=== PATIENT | female | born 2000 | race Caucasian/White ===

== ENCOUNTER 2024-01-16 20:42 | Emergency (ER) | payer BC ==
[2024-01-16 20:46] VITALS: TEMP 98.7
[2024-01-16] MEDS ORDERED: SUBLIMAZE 100 MCG/2 ML ONE (21:15)
[2024-01-16] MEDS ORDERED: Zofran 4 MG/2 ML VIAL ONE (21:15)
[2024-01-16] MEDS ORDERED: Sodium Chloride 0.9% 1000 ML 1,000 ML ONE (21:16)
[2024-01-16 21:18] LABS: Absolute Neutrophil Ct (ANC) 4.61 x10^3/uL (1.4-6.9); BASOPHIL % 0.4 % (0.0-0.4); Basophil (Absolute #) 0.04 x10^3/uL (0-0.4); Eosinophil % 2.7 % (0.00-5.0); Eosinophil (Absolute #) 0.24 x10^3/uL (0-0.5); Hematocrit 37.5 % (35-47); Hemoglobin 11.3 g/dL (12.0-16.0); IMMATURE GRAN # 0.02 x10^3u/L (0.00-0.03); IMMATURE GRAN % 0.2 % (0.00-0.4); Lymphocyte (Absolute #) 3.59 x10^3/uL (1.0-4.6); Lymphocytes % 39.8 % (24.0-44.0); Mean Cell Volume 74.9 fL (78-100); Mean Corpuscular Hemoglobin 22.6 pg (26-32); Mean Corpuscular Hgb Concent. 30.1 g/dL (32-36); Mean Platelet Volume 9.8 fL (7.5-11.0); Monocyte (Absolute #) 0.51 x10^3/uL (0.0-1.3); Monocytes % 5.7 % (0.0-12.0); Neutrophil % 51.2 % (36.0-66.0); Platelet Count 396 x10^3/uL (150-450); Red Blood Count 5.01 x10^6/uL (4.1-5.4)
[2024-01-16] MEDS: Sodium Chloride 0.9% 1000 ML 1,000 ML IV STA (21:22)
[2024-01-16] MEDS: SUBLIMAZE 100 MCG/2 ML IV ONE (21:23)
[2024-01-16] MEDS: Zofran 4 MG/2 ML VIAL IV ONE (21:23)
[2024-01-16 21:31] LABS: HCG SERUM TEST NEGATIVE (NEGATIVE)
[2024-01-16 21:34] LABS: ALBUMIN 3.9 g/dL (3.5-5.0); ANION GAP 13.8 MEQ/L (5-15); BILIRUBIN,TOTAL 0.6 mg/dL (0.2-1.3); Calcium 8.9 mg/dL (8.4-10.2); Creatinine 1 0.59 mg/dL (0.52-1.04); EST GLOMERULAR FILTRATION RATE 130.6 ML/MIN; Potassium 3.9 mmol/L (3.5-5.1); Total Protein 7.2 g/dL (6.3-8.2)
[2024-01-16 21:51] LABS: ADD URINE CULTURE? YES (NO); Appearance Cloudy (Clear); Bacteria Rare /HPF (None Seen); Bilirubin Negative (Negative); Blood Large (Negative); Epithelial Cells Moderate /HPF (None Seen); Glucose, Urine Negative (Negative); Hyaline Casts NONE SEEN /LPF (0-2); Ketones Negative (Negative); Leukocyte Esterase Moderate (Negative); Nitrite Negative (Negative); Protein,Urine Dip Trace (Negative); RBC 21-50 /HPF (0-5); Specific Gravity 1.025 (1.005-1.030); WBC 21-50 /HPF (0-5)
[2024-01-16 22:18] LABS: INFLUENZA A NEGATIVE (NEGATIVE); INFLUENZA B NEGATIVE (NEGATIVE); RESPIRATORY SYNCTIAL VIRUS NEGATIVE (NEGATIVE); SARS-CoV-2 Xpert Express NEGATIVE (NEGATIVE)
--- NOTE | 2024-01-16 22:29 | XRAY ---
CLINICAL HISTORY: mid abd pain/vomiting COMPARISON: None TECHNIQUE: A CT scan of the abdomen and pelvis was performed without IV contrast. Coronal and sagittal reconstructive images were also obtained. One of the following dose reduction techniques were utilized for this exam: Automated exposure control, adjustment of the mA and/or kV according to patient size, and use of iterative reconstruction. FINDINGS: Sections of the lower thorax show no significant abnormality. Abdomen: Area of mesenteric fatty proliferation in the mid-abdomen surrounding mesenteric vessels and mesenteric nodes, representing early mesenteric panniculitis. The liver is of average size, however, shows fatty infiltration. The intrahepatic biliary radicals and the bile ducts are normal. The gallbladder is distended. There is no evidence of wall thickening/ pericholecystic collection. The spleen, pancreas, and adrenal glands are unremarkable. The kidneys are normal in size and shape. No calculi or hydronephrosis. The appendix appears unremarkable. The ascending colon, the transverse colon, the descending colon, visualized small bowel loops are unremarkable. Pelvis: The urinary bladder is unremarkable. The rectosigmoid colon is unremarkable. The uterus appears unremarkable. Both ovaries appear bulky with the right ovary measuring 40 x 28 mm and the left ovary measuring 28 x 26 mm. No evidence of pelvic lymphadenopathy. No definite bony abnormalities could be depicted. Straightening of the lumbar spine is identified as likely secondary to muscular spasm. Thoracic scoliosis is identified with convexity towards the right side. IMPRESSION: 1. Area of mesenteric fatty proliferation in the mid-abdomen surrounding mesenteric vessels and mesenteric nodes, representing early mesenteric panniculitis. Clinical correlation is suggested. 2. Bulky both ovaries as detailed above. Recommended ultrasound follow-up.Hepatic steatosis. 3. Thoracic dextroscoliosis. [facility] ER was called at [phone] at 9:20 PM [employer], 01/16/2024 and findings were verbally communicated to Berhane Meyer. Electronically Signed by: Piedad Portillo MD. (01/16/2024 22:25:53 EDT)
[2024-01-16] MEDS ORDERED: ROCEPHIN 2 GM/100 ML NACL 2 GM/100 ML IVPB IV ONE (22:38)
[2024-01-16] MEDS: ROCEPHIN 2 GM/100 ML NACL 2 GM/100 ML IVPB IV ONE (22:42)
[2024-01-16 23:16] VITALS: BP 96/45; PULSE 83; RESP 17; O2SAT 99
--- NOTE | 2024-01-16 23:34 | ERPHSYRPT ---
- History of Present Illness Time Seen by Provider: 01/16/24 20:54 Historian: patient Exam Limitations: no limitations Patient Subjective Stated Complaint: abd pain and anxiety Triage Nursing Assessment: pt brought in by wheelchair from family vehicle per this nurse. Pt is very anxious upon arrival, c/o abd pain. Pt has pain to the mid lower abd region which began around 8pm tonight and describes it as stabbing. Pt has nausea but denies any vomiting or diarrhea. Pt c/o flank pain as well. Abd lg, obese with active bs x4 quad, tender to lower middle abd region. Physician History: 23 years old female with history of PCOS, hypothyroidism presented in the ER with complains of periumbilical pain started almost an hour prior to arrival moderate to severe sharp, nonradiating with associated nausea and dry heaving. Pain is aggravated with palpation and movements and no significant relieving factors. Patient reports she has been sick almost 5 days ago with nausea vomiting diarrhea which improved for few days. No fever or chills reported. Has any diarrhea or constipation now. Allergies/Adverse Reactions: Sulfa (Sulfonamide Antibiotics) Adverse Reaction (Intermediate, Verified 01/16/24 21:01) Hives Home Medications: Levothyroxine Sodium 88 Mcg [Synthroid 88 Mcg] 1 tab PO DAILY 01/16/24 [History] Spironolactone 25 mg [Aldactone 25 MG] 1 tab PO DAILY 01/16/24 [History] Hx Tetanus, Diphtheria Vaccination/Date Given: No Hx Influenza Vaccination/Date Given: No Hx Pneumococcal Vaccination/Date Given: No Immunizations Up to Date: No Travel Risk - International Travel Have you traveled outside of the country in past 3 weeks: No - Emerging Infectious Disease Are you exhibiting symptoms associated with any current EIDs: Yes Symptoms: Abdominal Pain, Other (Please Comment) Comment: anxious - Review of Systems Constitutional: Fatigue Eyes: No Symptoms Ears, Nose, & Throat: No Symptoms Respiratory: No Symptoms Cardiac: No Symptoms Abdominal/Gastrointestinal: Abdominal Pain, Nausea Genitourinary Symptoms: No Symptoms Musculoskeletal: No Symptoms Skin: No Symptoms Neurological: No Symptoms Endocrine: No Symptoms Hematologic/Lymphatic: No Symptoms - Past Medical History Pertinent Past Medical History: Yes Neurological History: No Pertinent History ENT History: No Pertinent History Cardiac History: No Pertinent History Respiratory History: No Pertinent History Endocrine Medical History: Hypothyroidism Musculoskeletal History: Other GI Medical History: No Pertinent History History: Other Psycho-Social History: Anxiety Female Reproductive Disorders: Other Other Medical History: age 7, immature bladder which has now resolved. scoliosis. insulin resistance - Past Surgical History Past Surgical History: No - Female History Hx Last Menstrual Period: 01/14/24 Hx Now: (unkn) - Social History Smoking Status: Never smoker Exposure to second hand smoke: No Drug Use: none - Nursing Vital Signs Nursing Vital Signs: Initial Vital Signs Temperature 98.7 F 01/16/24 20:44 Pulse Rate 84 01/16/24 20:44 Respiratory Rate 22 01/16/24 20:44 Blood Pressure 104/88 01/16/24 20:44 O2 Sat by Pulse Oximetry 99 01/16/24 20:44 Pain Scale Pain Intensity 1 - Physical Exam General Appearance: no apparent distress, alert Eye Exam: PERRL/EOMI Ears, Nose, Throat Exam: normal ENT inspection Neck Exam: normal inspection, supple, full range of motion Respiratory Exam: normal breath sounds, lungs clear Cardiovascular Exam: regular rate/rhythm, normal heart sounds Gastrointestinal/Abdomen Exam: soft, normal bowel sounds, tenderness (Umbilical area), guarding Back Exam: normal inspection, normal range of motion Extremity Exam: normal inspection, normal range of motion Neurologic Exam: alert, oriented x 3, cooperative Skin Exam: normal color SpO2 Interpretation: normal SpO2: 99 O2 Delivery: Room Air Ordered Tests: Active Orders 24 hr Category Date Time Status IV Insertion STAT Care 01/16/24 21:09 Active NPO (ED) STAT Care 01/16/24 21:09 Active ABDOMEN AND PELVIS W/0 CONTRAS [CT] Stat Exams 01/16/24 21:10 Completed CBC W DIFF Stat Lab 01/16/24 21:10 Completed CMP Stat Lab 01/16/24 21:10 Completed CULTURE,URINE Stat Lab 01/16/24 21:36 Received HCG QUALITATIVE, SERUM Stat Lab 01/16/24 21:10 Completed LIPASE Stat Lab 01/16/24 21:10 Completed TROPONIN Q4H Lab 01/16/24 21:10 Completed TROPONIN Q4H Lab 01/17/24 01:15 Ordered TROPONIN Q4H Lab 01/17/24 05:15 Ordered UA W/RFX UR CULTURE Stat Lab 01/16/24 21:36 Completed Medication Summary Discontinued Medications Generic Name Dose Route Start Last Admin Trade Name Ferdinand PRN Reason Stop Dose Admin Fentanyl Citrate 50 mcg 01/16/24 21:09 01/16/24 21:23 Fentanyl Citrate 100 Mcg/2 Ml* Vial IV 01/16/24 21:10 50 mcg STAT ONE Administration Fentanyl Citrate Confirm 01/16/24 21:15 Fentanyl Citrate 100 Mcg/2 Ml* Vial Administered 01/16/24 21:16 Dose 100 mcg .ROUTE .STK-MED ONE Sodium Chloride 1,000 mls @ 999 mls/hr 01/16/24 21:09 01/16/24 22:23 Sodium Chloride 0.9% 1000 Ml IV 01/16/24 22:09 Infused .Q1H1M STA Infusion Sodium Chloride Confirm 01/16/24 21:16 Sodium Chloride 0.9% 1000 Ml Administered 01/16/24 21:17 Dose 1,000 mls @ ud .ROUTE .STK-MED ONE Ceftriaxone Sodium 2 gm in 100 mls @ 200 mls/hr 01/16/24 22:35 01/16/24 22:42 Rocephin 2 Gm/100 Ml Nacl IV 01/16/24 23:04 200 ml/hr STAT ONE 200 mls/hr Administration Ceftriaxone Sodium Confirm 01/16/24 22:38 Rocephin 2 Gm/100 Ml Nacl Administered 01/16/24 22:39 Dose 2 gm in 100 mls @ ud IV .STK-MED ONE Ondansetron HCl 4 mg 01/16/24 21:09 01/16/24 21:23 Ondansetron Hcl 4 Mg/2 Ml Vial IV 01/16/24 21:10 4 mg STAT ONE Administration Ondansetron HCl Confirm 01/16/24 21:15 Ondansetron Hcl 4 Mg/2 Ml Vial Administered 01/16/24 21:16 Dose 4 mg .ROUTE .STK-MED ONE Lab/Rad Data: Laboratory Result Diagrams 01/16/24 21:10 01/16/24 21:10 Laboratory Results 01/16/24 01/16/24 01/16/24 Range/Units 21:40 21:36 21:10 WBC (4.0-10.5) x10^3/uL RBC (4.1-5.4) x10^6/uL Hgb (12.0-16.0) g/dL Hct (35-47) % MCV (78-100) fL MCH (26-32) pg MCHC (32-36) g/dL RDW (11.5-14.0) % Plt Count (150-450) x10^3/uL MPV (7.5-11.0) fL Gran % (36.0-66.0) % Immature Gran % (Auto) (0.00-0.4) % Nucleat RBC Rel Count (0.00-0.1) % Eos # (Auto) (0-0.5) x10^3/uL Immature Gran # (Auto) (0.00-0.03) x10^3u/L Absolute Lymphs (auto) (1.0-4.6) x10^3/uL Absolute Monos (auto) (0.0-1.3) x10^3/uL Absolute Nucleated RBC (0.00-0.01) x10^3u/L Lymphocytes % (24.0-44.0) % Monocytes % (0.0-12.0) % Eosinophils % (0.00-5.0) % Basophils % (0.0-0.4) % Absolute Granulocytes (1.4-6.9) x10^3/uL Basophils # (0-0.4) x10^3/uL Sodium (135-145) mmol/L Potassium (3.5-5.1) mmol/L Chloride (98-107) mmol/L Carbon Dioxide (22-30) mmol/L Anion Gap (5-15) MEQ/L BUN (7-17) mg/dL Creatinine (0.52-1.04) mg/dL Estimated GFR ML/MIN Glucose (74-106) mg/dL Calcium (8.4-10.2) mg/dL Total Bilirubin (0.2-1.3) mg/dL AST (14-36) U/L ALT (0-35) U/L Alkaline Phosphatase (38-126) U/L Troponin I (0.000-0.033) ng/mL Serum Total Protein (6.3-8.2) g/dL Albumin (3.5-5.0) g/dL Lipase (23-300) U/L Serum HCG, Qual NEGATIVE (NEGATIVE) Urine Color Dark Yellow A (Yellow) Urine Appearance Cloudy A (Clear) Urine pH 6.0 (4.6-8.0) Ur Specific [place] 1.025 (1.005-1.030) Urine Protein Trace A (Negative) Urine Glucose (UA) Negative (Negative) mg/dL Urine Ketones Negative (Negative) Urine Blood Large A (Negative) Urine Nitrite Negative (Negative) Urine Bilirubin Negative (Negative) Urine Urobilinogen 1.0 A (0.2) mg/dL Ur Leukocyte Esterase Moderate A (Negative) U Hyaline Cast (Auto) NONE SEEN (0-2) /LPF Urine Microscopic RBC 21-50 A (0-5) /HPF Urine Microscopic WBC 21-50 A (0-5) /HPF Ur Epithelial Cells Moderate A (None Seen) /HPF Urine Bacteria Rare A (None Seen) /HPF Urine Culture Reflexed YES (NO) Influenza Type A Ag NEGATIVE (NEGATIVE) Influenza Type B Ag NEGATIVE (NEGATIVE) RSV (PCR) NEGATIVE (NEGATIVE) SARS-CoV-2 (PCR) NEGATIVE (NEGATIVE) 01/16/24 01/16/24 01/16/24 Range/Units 21:10 21:10 21:10 WBC 9.0 (4.0-10.5) x10^3/uL RBC 5.01 (4.1-5.4) x10^6/uL Hgb 11.3 L (12.0-16.0) g/dL Hct 37.5 (35-47) % MCV 74.9 L (78-100) fL MCH 22.6 L (26-32) pg MCHC 30.1 L (32-36) g/dL RDW 16.0 H (11.5-14.0) % Plt Count 396 (150-450) x10^3/uL MPV 9.8 (7.5-11.0) fL Gran % 51.2 (36.0-66.0) % Immature Gran % (Auto) 0.2 (0.00-0.4) % Nucleat RBC Rel Count 0.0 (0.00-0.1) % Eos # (Auto) 0.24 (0-0.5) x10^3/uL Immature Gran # (Auto) 0.02 (0.00-0.03) x10^3u/L Absolute Lymphs (auto) 3.59 (1.0-4.6) x10^3/uL Absolute Monos (auto) 0.51 (0.0-1.3) x10^3/uL Absolute Nucleated RBC 0.00 (0.00-0.01) x10^3u/L Lymphocytes % 39.8 (24.0-44.0) % Monocytes % 5.7 (0.0-12.0) % Eosinophils % 2.7 (0.00-5.0) % Basophils % 0.4 (0.0-0.4) % Absolute Granulocytes 4.61 (1.4-6.9) x10^3/uL Basophils # 0.04 (0-0.4) x10^3/uL Sodium 140 (135-145) mmol/L Potassium 3.9 (3.5-5.1) mmol/L Chloride 108 H (98-107) mmol/L Carbon Dioxide 22 (22-30) mmol/L Anion Gap 13.8 (5-15) MEQ/L BUN 9 (7-17) mg/dL Creatinine 0.59 (0.52-1.04) mg/dL Estimated GFR 130.6 ML/MIN Glucose 98 (74-106) mg/dL Calcium 8.9 (8.4-10.2) mg/dL Total Bilirubin 0.60 (0.2-1.3) mg/dL AST 54 H (14-36) U/L ALT 66 H (0-35) U/L Alkaline Phosphatase 45 (38-126) U/L Troponin I < 0.012 (0.000-0.033) ng/mL Serum Total Protein 7.2 (6.3-8.2) g/dL Albumin 3.9 (3.5-5.0) g/dL Lipase 147 (23-300) U/L Serum HCG, Qual (NEGATIVE) Urine Color (Yellow) Urine Appearance (Clear) Urine pH (4.6-8.0) Ur Specific [place] (1.005-1.030) Urine Protein (Negative) Urine Glucose (UA) (Negative) mg/dL Urine Ketones (Negative) Urine Blood (Negative) Urine Nitrite (Negative) Urine Bilirubin (Negative) Urine Urobilinogen (0.2) mg/dL Ur Leukocyte Esterase (Negative) U Hyaline Cast (Auto) (0-2) /LPF Urine Microscopic RBC (0-5) /HPF Urine Microscopic WBC (0-5) /HPF Ur Epithelial Cells (None Seen) /HPF Urine Bacteria (None Seen) /HPF Urine Culture Reflexed (NO) Influenza Type A Ag (NEGATIVE) Influenza Type B Ag (NEGATIVE) RSV (PCR) (NEGATIVE) SARS-CoV-2 (PCR) (NEGATIVE) - Progress Progress: improved, re-examined Progress Note: 01/16/24 23:32 23 years old is evaluated for periumbilical pain with nausea. She is given symptomatic treatment for pain along with fluids, on reevaluation feeling much better. No peritoneal signs on repeated evaluation. Normal white count, fairly unremarkable chemistries except for mildly elevated transaminases. Has UTI and given a dose of Rocephin. CT abdomen pelvis showed mesenteric panniculitis, hepatic steatosis but no other acute findings. Patient has history of PCOS. Patient has no fever. Will continue with NSAIDs and also antibiotics for UTI which will help with any infectious process which I doubt is there with many colitis which is more of a inflammatory/reactive process. Discussed signs symptoms of worsening needing return to ER which patient seems understanding. Stable for discharge. Counseled pt/family regarding: lab results, diagnosis, need for follow-up, rad results Medical Desision Making - Independent Historian Additional History obtained from: Mother - Diagnostic Testing Diagnostic test were ordered, analyzed, and reviewed by me: Yes Radiological Interpretation: Reviewed by me, Teleradiologist Report - Risk of complications The pt has a mod risk of morbidity or mortality based on: Need for prescription drug management - Departure Departure Disposition: Home Clinical Impression: Acute UTI (urinary tract infection), Mesenteric panniculitis, PCOS (polycystic ovarian syndrome) Condition: Stable Critical Care Time: No Referrals: WILFRIDO IBARRA NP [Primary Care Provider] - Follow up with PCP 1 day Instructions: Severe Abdominal Pain, Adult (DC) Additional Instructions: Take Tylenol/ibuprofen as needed. Follow-up with primary care for reevaluation. Return to ER for intractable abdominal pain/fever chills/intractable nausea vomiting etc. Prescriptions: Ibuprofen 600 mg PO Q6HPRN PRN 10 Days #20 tablet PRN Reason: Pain Ciprofloxacin [Cipro 500 MG] 500 mg PO BID #14 tablet Ondansetron ODT 4 MG [Zofran Odt 4 mg] 1 ea PO QIDPRN PRN #7 tablet PRN Reason: n/v
== END 2024-01-16 23:48 | disposition home or self-care (01) ==
LOC: ED 20:42
DX: N39.0 Urinary tract infection, site not specified (principal); K65.4 Sclerosing mesenteritis; E28.2 Polycystic ovarian syndrome; R10.33 Periumbilical pain; Z79.899 Other long term (current) drug therapy
CPT/HCPCS: 0241U; 36000; 36415; 74176; 80053; 81001; 83690; 84484; 84703; 85025; 87086; 96365; 96374; 96375; 99284; J0696; J2405; J3010

== ENCOUNTER 2024-04-17 07:54 | Day surgery (SDC) | payer BC ==
[~2024-04-17 07:54] MED LIST: Sensorcaine 0.25% 10 ML ONE
[2024-04-17 08:09] LABS: HCG URINE TEST NEGATIVE (NEGATIVE)
--- NOTE | 2024-04-17 08:15 | HP ---
HISTORY OF PRESENT ILLNESS: The patient is a 24-year-old with right upper quadrant pain, nausea at times. No change in bowel movements. Ultrasound negative according to the patient. She did have a HIDA scan, was 4% consistent with symptomatic biliary dyskinesia, acute exacerbation of chronic cholecystitis. PAST MEDICAL HISTORY: Polycystic ovarian syndrome, hypothyroidism. HOME MEDICATIONS: Multivitamins, probiotic, levothyroxine, vitamin D3, vitamin D2, spironolactone, control pills. ALLERGIES: Sulfa. PAST SURGICAL HISTORY: She denied prior surgery. SOCIAL HISTORY: No smoking or alcohol abuse. REVIEW OF SYSTEMS: Twelve systems reviewed. Pertinent for obesity, hypothyroidism, PCOS/polycystic ovarian syndrome. No chest pain or palpitations. Other systems negative or noncontributory as above and per preadmission questionnaire. PHYSICAL EXAMINATION: VITAL SIGNS: Height 5 feet 1 inch. BMI 50.8. GENERAL: No acute distress. HEENT: Sclerae nonicteric. Extraocular movements intact. Oral mucous membranes moist. NECK: No JVD. CHEST: Equal excursion, nonlabored breathing. CARDIOVASCULAR: Regular rate and rhythm. ABDOMEN: Soft. Mild tenderness in right upper quadrant. EXTREMITIES: No cyanosis or edema. NEUROLOGIC: Alert and oriented, moving all extremities symmetrically. PSYCHIATRIC: Appropriate mood and affect. SKIN: Dry. IMPRESSION: Acute exacerbation of chronic cholecystitis, symptomatic biliary dyskinesia. Recommend cholecystectomy. Showed them the gallbladder pamphlet and risk sheet. Risks explained in detail including but not limited to risk of bleeding and infection; risk of trocar injury and hernia; risk of bile leak or bile duct injury, retained stone or sludge possibly requiring further procedure either ERCP or open procedure; general risk of anesthesia, DVT, PE, pneumonia; perioperative risk of aches and pains, bloating, constipation or loose stools possibly chronic in nature; possibility of no improvement of preoperative symptoms possibly requiring further workup, studies, endoscopy, other studies or referrals. He understands and we will proceed with outpatient general lap suly, possibly open. Otherwise, continue medication for hypertension and polycystic ovarian syndrome.
[2024-04-17] MEDS: Lactated Ringers 1,000 ML IV SCH (08:26)
[2024-04-17] MEDS: MEFOXIN 2 GM PREMIX** 2 GM/50 ML ML IV SCH (08:27)
[2024-04-17] MEDS ORDERED: Sodium Chloride 0.9% 1000 ML 1,000 ML ONE (09:12)
[2024-04-17] MEDS ORDERED: ROCURONIUM BROMIDE IV ONE (10:55)
[2024-04-17] MEDS ORDERED: DIPRIVAN 200 MG/20 ML IV ONE (10:55)
[2024-04-17] MEDS ORDERED: SUBLIMAZE 100 MCG/2 ML ONE ×3 (10:55→12:02)
[2024-04-17] MEDS ORDERED: Versed 2 MG/2 ML Injection ONE (10:55)
[2024-04-17] MEDS ORDERED: Xylocaine-Mpf 2% 5 Ml Vial ONE (10:59)
[2024-04-17] MEDS ORDERED: TORAdol 30 mg Injection ONE (11:42)
[2024-04-17] MEDS ORDERED: BRIDION 200MG/2ML IV ONE (11:42)
[2024-04-17] MEDS ORDERED: Hydromorphone 1 mg/ml Injection ONE ×2 (12:02→12:51)
[2024-04-17] MEDS ORDERED: Zofran 4 MG/2 ML VIAL ONE (12:21)
[2024-04-17 13:46] VITALS: RESP 16; TEMP 97.7
[2024-04-17] MEDS: Zofran 4 MG/2 ML VIAL IV PRN (14:00)
[2024-04-17 14:04] VITALS: O2SAT 96
[2024-04-17 14:16] VITALS: BP 131/85; PULSE 70
--- NOTE | 2024-04-18 10:20 | OP ---
SURGERY DATE/TIME: 04/17/2024 2450 - 1565 PREOPERATIVE DIAGNOSES: Acute exacerbation of chronic cholecystitis, symptomatic biliary dyskinesia. POSTOPERATIVE DIAGNOSES: Acute exacerbation of chronic cholecystitis, symptomatic biliary dyskinesia. PROCEDURE: Laparoscopic cholecystectomy. SURGEON: Alexis Abarca MD ANESTHESIA: General. ESTIMATED BLOOD LOSS: Minimal. INDICATIONS: As above. Consent was obtained. DESCRIPTION OF PROCEDURE AND FINDINGS: The patient was taken to the operating room. General anesthesia was induced, prepped and draped in usual sterile fashion. After official time-out and no disagreement with planned procedure, transverse incision made at the supraumbilical area. Fascia grasped and pulled up. Veress needle inserted. Tested with saline. Pneumoperitoneum accomplished, insufflating to an open pressure of 15. A 5 mm bladeless port and camera were inserted without difficulty followed by two 5 mm right upper quadrant ports and an 11 mm epigastric port. There was no evidence of any intra-abdominal injury secondary to trocar insertion. Gallbladder was grasped, retracted up over the edge of the liver. It had some chronic inflammation. Dissected posterolateral to anterior fashion. Slowly and carefully, cystic duct and junction of main cystic artery were skeletonized until the critical view was obtained anteriorly and posteriorly. Once this was accomplished, the cystic duct and the cystic artery were clipped x3 and divided in usual fashion. The gallbladder was slowly and carefully dissected free from its dense attachments to the liver bed staying directly on the gallbladder wall, clipping additional oozing side branches off the cystic artery as necessary. Just prior to releasing the final attachments to the anterior edge of the liver, the liver bed reinspected. Clips noted to be in place in the cystic duct/cystic artery stumps. No signs of any active bleeding or bile leakage. [place] there was no benefit of any drain placement. At this point, the gallbladder was released from its final attachments to the anterior edge of the liver, both placed in a bag and pulled up and out through the 10/11 port site, enlarging the fascia slightly with a clamp. Gallbladder and bag were pulled free. This fascial defect closed with puncture closure device with #1 Vicryl. Copious amount of irrigation accomplished lateral to the liver and subhepatic space was irrigated clear. Liver bed reinspected. Clips noted to be in place in cystic duct/cystic artery stumps. No signs of any active bleeding or bile leakage. [place] there was no benefit of any drain placement. Pneumoperitoneum decompressed. Wounds irrigated out. Skin incision closed with 4-0 Vicryl. Steri-Strips and sterile dressing applied. Patient tolerated the procedure well. There were no immediate complications. Findings discussed with family in the waiting area. She was transferred to the recovery room in stable condition.
== END 2024-04-17 14:22 | disposition home or self-care (01) ==
LOC: SDC 07:54
PROVIDERS: ATTEND Surgery
DX: K81.1 Chronic cholecystitis (principal); K82.8 Other specified diseases of gallbladder
CPT/HCPCS: 81025; J0694; J1170; J1885; J2250; J2405; J2704; J3010